=== PATIENT | male | born 1995 | race Caucasian/White ===

== ENCOUNTER 2019-08-13 17:35 | Emergency (ER) | payer OTHER ==
[2019-08-13] MEDS ORDERED: Sodium Chloride 0.9% 1,000 ML IV ONE (18:05)
--- NOTE | 2019-08-13 18:22 | EDM.PDOC ---
ED HPI GENERAL MEDICAL PROBLEM - General Chief Complaint: Abdominal Pain Stated Complaint: STOMACH PAINS Time Seen by Provider: 08/13/19 18:17 Source of Information: Reports: Patient - History of Present Illness INITIAL COMMENTS - FREE TEXT/NARRATIVE: HISTORY AND PHYSICAL: History of present illness: []Patient presents with nausea and diarrhea as well as intermittent vomiting since last Tuesday , h/o bowel obstruction per patient. She presents in no apparent distress with intermittent colicky abdominal pain he does have some tenderness on deep palpation nonfocal tenderness otherwise eating drinking voiding well No fever chills sweats no chest pain shortness breath headache dizziness or palpitation Review of systems: As per history of present illness and below otherwise all systems reviewed and negative. Past medical history: As per history of present illness and as reviewed below otherwise noncontributory. Surgical history: As per history of present illness and as reviewed below otherwise noncontributory. Social history: No reported history of drug or alcohol abuse. Family history: As per history of present illness and as reviewed below otherwise noncontributory. Physical exam: HEENT: Atraumatic, normocephalic, pupils reactive, negative for conjunctival pallor or scleral icterus, mucous membranes moist, throat clear, neck supple, nontender, trachea midline. Lungs: Clear to auscultation, breath sounds equal bilaterally, chest nontender. Heart: S1S2, regular, negative for clicks, rubs, or JVD. Abdomen: Soft, nondistended, nontender. Negative for masses or hepatosplenomegaly. Negative for costovertebral tenderness. Pelvis: Stable nontender. Genitourinary: Deferred. Rectal: Deferred. Extremities: Atraumatic, negative for cords or calf pain. Neurovascular unremarkable. Neuro: Awake, alert, oriented. Cranial nerves II through XII unremarkable. Cerebellum unremarkable. Motor and sensory unremarkable throughout. Exam nonfocal. Diagnostics: [CBC CMP UA Therapeutics: [Normal saline ] Impression: Gastroenteritis Definitive disposition and diagnosis as appropriate pending reevaluation and review of above. Middle Abdomen Pain Score (Numeric/FACES): 7 - Related Data Allergies Allergy/AdvReac Type Severity Reaction Status Date / Time No Known Allergies Allergy Verified 08/13/19 17:59 Home Meds: Home Meds . [No Known Home Meds] 08/13/19 [History] Past Medical History Cardiovascular History: Reports: None Respiratory History: Reports: Asthma Gastrointestinal History: Reports: Bowel Obstruction, Other (See Below) Other Gastrointestinal History: "colon folded over" Genitourinary History: Reports: None Musculoskeletal History: Reports: Fracture Other Musculoskeletal History: sternum, R arm, L foot Neurological History: Reports: None Psychiatric History: Reports: None Endocrine/Metabolic History: Reports: None Hematologic History: Reports: None Immunologic History: Reports: None Oncologic (Cancer) History: Reports: None Dermatologic History: Reports: None - Infectious Disease History Infectious Disease History: Reports: None - Past Surgical History Head Surgeries/Procedures: Reports: None HEENT Surgical History: Reports: Oral Surgery GI Surgical History: Reports: None Social & Family History - Tobacco Use Smoking Status *Q: Light Tobacco Smoker Years of Tobacco use: 10 Packs/Tins Daily: 0.1 - Caffeine Use Caffeine Use: Reports: Coffee - Recreational Drug Use Recreational Drug Use: No ED ROS GENERAL - Review of Systems Review Of Systems: See Below ED EXAM, GENERAL - Physical Exam Exam: See Below Course - Vital Signs Last Recorded V/S: Last Vital Signs Temp 97.6 F 08/13/19 17:57 Pulse 74 08/13/19 17:57 Resp 18 08/13/19 17:57 BP 134/80 08/13/19 17:57 Pulse Ox 98 08/13/19 17:57 - Orders/Labs/Meds Orders: Active Orders 24 hr Category Date Time Status Abdomen 2V AP Flat Upright [CR] Stat Exams 08/13/19 18:54 Ordered UA RFX PORTIA AND CULT IF INDIC [URIN] Stat Lab 08/13/19 18:05 Ordered Labs: Laboratory Tests 08/13/19 08/13/19 Range/Units 18:30 18:30 WBC 5.32 (4.0-11.0) K/uL RBC 4.76 (4.50-5.90) M/uL Hgb 14.5 (13.0-17.0) g/dL Hct 41.0 (38.0-50.0) % MCV 86.1 (80.0-98.0) fL MCH 30.5 (27.0-32.0) pg MCHC 35.4 (31.0-37.0) g/dL RDW Std Deviation 39.3 (28.0-62.0) fl RDW Coeff of Concetta 13 (11.0-15.0) % Plt Count 207 (150-400) K/uL MPV 9.50 (7.40-12.00) fL Neut % (Auto) 51.9 (48.0-80.0) % Lymph % (Auto) 28.8 (16.0-40.0) % Weld % (Auto) 16.4 H (0.0-15.0) % Eos % (Auto) 2.3 (0.0-7.0) % Baso % (Auto) 0.6 (0.0-1.5) % Neut # (Auto) 2.8 (1.4-5.7) K/uL Lymph # (Auto) 1.5 (0.6-2.4) K/uL Weld # (Auto) 0.9 H (0.0-0.8) K/uL Eos # (Auto) 0.1 (0.0-0.7) K/uL Baso # (Auto) 0.0 (0.0-0.1) K/uL Nucleated RBC % 0.0 /100WBC Nucleated RBCs # 0 K/uL Sodium 139 (136-148) mmol/L Potassium 3.8 (3.5-5.1) mmol/L Chloride 103 (98-107) mmol/L Carbon Dioxide 25.8 (21.0-32.0) mmol/L BUN 11 (7.0-18.0) mg/dL Creatinine 1.0 (0.8-1.3) mg/dL Est Cr Clr Drug Dosing 112.67 mL/min Estimated GFR (MDRD) > 60.0 ml/min Glucose 80 (74-106) mg/dL Calcium 8.7 (8.5-10.1) mg/dL Total Bilirubin 0.8 (0.2-1.0) mg/dL AST 50 H (15-37) IU/L ALT 67 H (14-63) IU/L Alkaline Phosphatase 47 (46-116) U/L Total Protein 7.5 (6.4-8.2) g/dL Albumin 4.1 (3.4-5.0) g/dL Globulin 3.4 (2.6-4.0) g/dL Albumin/Globulin Ratio 1.2 (0.9-1.6) Lipase 104 (73-393) U/L Meds: Medications Discontinued Medications Generic Name Dose Route Start Last Admin Trade Name Beckie PRN Reason Stop Dose Admin Sodium Chloride 1,000 mls @ 999 mls/hr 08/13/19 18:05 08/13/19 18:28 Normal Saline IV 08/13/19 19:05 999 mls/hr STAT ONE Administration Departure - Departure Time of Disposition: 19:14 Disposition: Home, Self-Care 01 Condition: Good Clinical Impression: Gastroenteritis - Discharge Information Referrals: PCP,None [Primary Care Provider] - Forms: ED Department Discharge Additional Instructions: The following information is given to patients seen in the emergency department who are being discharged to home. This information is to outline your options for follow-up care. We provide all patients seen in our emergency department with a follow-up referral. The need for follow-up, as well as the timing and circumstances, are variable depending upon the specifics of your emergency department visit. If you don't have a primary care physician on staff, we will provide you with a referral. We always advise you to contact your personal physician following an emergency department visit to inform them of the circumstance of the visit and for follow-up with them and/or the need for any referrals to a consulting specialist. The emergency department will also refer you to a specialist when appropriate. This referral assures that you have the opportunity for follow-up care with a specialist. All of these measure are taken in an effort to provide you with optimal care, which includes your follow-up. Under all circumstances we always encourage you to contact your private physician who remains a resource for coordinating your care. When calling for follow-up care, please make the office aware that this follow-up is from your recent emergency room visit. If for any reason you are refused follow-up, please contact the [facility] emergency department at and asked to speak to the emergency department charge nurse. - My Orders Last 24 Hours: My Active Orders 08/13/19 18:05 UA RFX PORTIA AND CULT IF INDIC [URIN] Stat 08/13/19 18:54 Abdomen 2V AP Flat Upright [CR] Stat - Assessment/Plan Last 24 Hours: My Active Orders 08/13/19 18:05 UA RFX PORTIA AND CULT IF INDIC [URIN] Stat 08/13/19 18:54 Abdomen 2V AP Flat Upright [CR] Stat
[2019-08-13 19:01] LABS: BLOOD UREA NITROGEN,BUN 11 mg/dL (7.0-18.0); CARBON DIOXIDE,CO2 25.8 mmol/L (21.0-32.0); CHLORIDE,CL 103 mmol/L (98-107); GLUCOSE RANDOM 80 mg/dL (74-106); LIPASE 104 U/L (73-393); POTASSIUM,K 3.8 mmol/L (3.5-5.1); SODIUM,NA 139 mmol/L (136-148)
--- NOTE | 2019-08-13 20:23 | CR ---
Indication: Mid abdominal pain, six-day history of diarrhea Technique: KUB 2 view Comparison: None Findings: : Soft tissues: No suspicious calcifications to suggest kidney or ureteral stones. No sign of free air. No sign of soft tissue mass. Bowel: There are some air-fluid levels in the right lower quadrant on the upright film. Bones: Unremarkable for age. Impression: : There are few air-fluid levels in the right lower quadrant on the upright film. Consider CT abdomen pelvis for further evaluation if clinically indicated. Dictated by Carly Pinto MD @ Aug 13 2019 7:39PM Signed by Dr. Carly Pinto @ Aug 13 2019 8:23PM
== END 2019-08-13 19:55 | disposition home or self-care (01) ==
LOC: MW.ED 17:35
DX: K52.9 Noninfective gastroenteritis and colitis, unspecified (principal); J45.909 Unspecified asthma, uncomplicated; F17.210 Nicotine dependence, cigarettes, uncomplicated
CPT/HCPCS: 74019; 80053; 83690; 85025; 96360; 99284; J7030; 99283